=== PATIENT | female | born 1985 | race Caucasian/White ===

== ENCOUNTER 2016-08-02 15:20 | Emergency (ER) | payer SELFPAY ==
[~2016-08-02] VITALS: Ht 167.6 cm; Wt 50.2 kg
[2016-08-02 15:27] VITALS: BP 180/131; PULSE 120; RESP 20; TEMP 98.2; O2SAT 99
[2016-08-02] MEDS ORDERED: ZANT150T2 PO (15:44)
[2016-08-02] MEDS ORDERED: PEPT262S PO (15:44)
[2016-08-02 15:47] VITALS: BP 119/74; PULSE 82; RESP 18; O2SAT 99
[2016-08-02 15:55] LABS: BLOOD, URINE LARGE (NEG); GLUCOSE,URINE NEG (NEG); NITRITE,URINE NEG (NEG)
[2016-08-02] MEDS ORDERED: SODIUM CHLOR 0.9% 1000 ML INJ 1,000 ML IV ONE (16:00)
[2016-08-02] MEDS ORDERED: ALUMINUM/MAGNESIUM/SIMETH 30 ML CUP PO ONE (16:00)
[2016-08-02] MEDS ORDERED: ONDANSETRON HCL 4 MG/2 ML VIAL IV PUSH ONE (16:00)
[2016-08-02] MEDS ORDERED: LIDOCAINE VISCOUS 2% SOLN 15 ML UDC PO ONE (16:00)
[2016-08-02] MEDS ORDERED: PANTOPRAZOLE SODIUM 40 MG VIAL IV PUSH ONE (16:00)
--- NOTE | 2016-08-02 16:07 | PD ---
HPI Chief Complaint: Abdominal Pain Time Seen by Provider: 15:52 Travel History International Travel<30 days: No Contact w/Intl Traveler<30days: No Traveled to known affect area: No History of Present Illness HPI This 30-year-old female is complaining of epigastric distress. She has not been able to eat for several days. Last Saturday which was almost a week ago she had alcohol. She woke up with an upset stomach and took an Aleve. Since then she has not been able to eat. When she eats she says it hurts to swallow. Food gets in her stomach and she has had sporadic vomiting. She has been able to hold down fluids. She is not on any medication. She has taken Zantac. She has no history of ulcer disease or abdominal surgery. She does not think she is [facility] Past Medical History Medical History: Denies Significant Hx Diminished Hearing: No Influenza Vaccination: No ?: Not LMP: NOW Past Surgical History Surgical History: No Previous Surgery Social History Alcohol Use: Yes Tobacco Use: No Substance Use: Yes (MARIJUANA) Allergies-Medications (Allergen,Severity, Reaction): Coded Allergies: No Known Allergies (Unverified , 08/02/16) Reported Meds & Prescriptions Reported Meds & Active Scripts Active Zofran Odt (Ondansetron Odt) 4 Mg Tab 4 Mg SL Q6HR PRN Protonix (Pantoprazole Sodium) 40 Mg Tab 40 Mg PO DAILY Reported Pepto-Bismol Liq (Bismuth Subsalicylate) 262 Mg/15 Ml Susp 30 Ml PO DIRECTED PRN Do not exceed 8 doses (240 mL or 16 tbsp) in 24 hours. Zantac (Ranitidine HCl) 150 Mg Tab 150 Mg PO DAILY Review of Systems General / Constitutional: No: Fever, Chills Eyes: No: Diploplia, Blurred Vision HENT: No: Headaches Cardiovascular: No: Chest Pain or Discomfort, Palpitations Respiratory: No: Cough Gastrointestinal: Positive: Nausea, Vomiting, Abdominal Pain, Dysphagia, Loss of Appetite Genitourinary: No: Urgency, Frequency Musculoskeletal: No: Myalgias, Arthralgias Skin: No Rash, No Itching Neurologic: No: Weakness Psychiatric: No: Anxiety, Depression Endocrine: No: Heat Intolerance Hematologic/Lymphatic: No: Easy Bruising Physical Exam Narrative GENERAL: Well-developed female SKIN: Focused skin assessment warm/dry. HEAD: Atraumatic. Normocephalic. EYES: Pupils equal and round. No scleral icterus. No injection or drainage. ENT: No nasal bleeding or discharge. Mucous membranes pink and moist. NECK: Trachea midline. No JVD. CARDIOVASCULAR: Regular rate and rhythm. No murmur appreciated. RESPIRATORY: No accessory muscle use. Clear to auscultation. Breath sounds equal bilaterally. GASTROINTESTINAL: Abdomen soft, mild epigastric tenderness, nondistended. Hepatic and splenic margins not palpable. MUSCULOSKELETAL: No obvious deformities. No clubbing. No cyanosis. No edema. NEUROLOGICAL: Awake and alert. No obvious cranial nerve deficits. Motor grossly within normal limits. Normal speech. PSYCHIATRIC: Appropriate mood and affect; insight and judgment normal. Data Data Last Documented VS Vital Signs Date Time Temp Pulse Resp B/P Pulse Ox O2 Delivery O2 Flow Rate FiO2 08/02/16 15:47 82 18 119/74 99 Room Air 08/02/16 15:27 98.2 Orders Urinalysis - C+S If Indicated (08/02/16 15:36) Ed Urine Pregnancytest Poc (08/02/16 15:36) Complete Blood Count With Diff (08/02/16 15:57) Comprehensive Metabolic Panel (08/02/16 15:57) Lipase (08/02/16 15:57) Sodium Chlor 0.9% 1000 Ml Inj (Ns 1000 M (08/02/16 16:00) Ondansetron Inj (Zofran Inj) (08/02/16 16:00) Pantoprazole Inj (Protonix Inj) (08/02/16 16:00) Al-Mag Hy-Si 40-40-4 Mg/Ml Liq (Mag-Al P (08/02/16 16:00) Lidocaine 2% Viscous (Xylocaine 2% Visco (08/02/16 16:00) Labs Laboratory Tests Test 08/02/16 08/02/16 08/02/16 15:40 16:05 16:50 Urine Color YELLOW Urine Turbidity CLEAR Urine pH 6.0 Urine Specific [place] 1.022 Urine Protein TRACE mg/dL Urine Glucose (UA) NEG mg/dL Urine Ketones 80 OR GREATER mg/dL Urine Occult Blood LARGE Urine Nitrite NEG Urine Bilirubin NEG Urine Leukocyte Esterase NEG Urine RBC 0-3 /hpf Urine WBC 0-2 /hpf Urine Squamous Epithelial 0-5 /hpf Cells Microscopic Urinalysis Comment CULT NOT INDICATED White Blood Count 7.8 TH/MM3 Red Blood Count 4.56 MIL/MM3 Hemoglobin 13.9 GM/DL Hematocrit 41.6 % Mean Corpuscular Volume 91.3 FL Mean Corpuscular Hemoglobin 30.6 PG Mean Corpuscular Hemoglobin 33.5 % Concent Red Cell Distribution Width 11.9 % Platelet Count 259 TH/MM3 Mean Platelet Volume 8.0 FL Neutrophils (%) (Auto) 71.9 % Lymphocytes (%) (Auto) 17.1 % Monocytes (%) (Auto) 9.2 % Eosinophils (%) (Auto) 0.4 % Basophils (%) (Auto) 1.4 % Neutrophils # (Auto) 5.7 TH/MM3 Lymphocytes # (Auto) 1.3 TH/MM3 Monocytes # (Auto) 0.7 TH/MM3 Eosinophils # (Auto) 0.0 TH/MM3 Basophils # (Auto) 0.1 TH/MM3 CBC Comment DIFF FINAL Differential Comment Sodium Level 138 MEQ/L Potassium Level 3.3 MEQ/L Chloride Level 101 MEQ/L Carbon Dioxide Level 26.3 MEQ/L Anion Gap 11 MEQ/L Blood Urea Nitrogen 13 MG/DL Creatinine 0.64 MG/DL Estimat Glomerular Filtration 110 ML/MIN Rate Random Glucose 78 MG/DL Calcium Level 8.3 MG/DL Total Bilirubin 0.7 MG/DL Aspartate Amino Transf 13 U/L (AST/SGOT) Alanine Aminotransferase 15 U/L (ALT/SGPT) Alkaline Phosphatase 53 U/L Total Protein 6.2 GM/DL Albumin 3.2 GM/DL Lipase 92 U/L [facility] Medical Decision Making Medical Screen Exam Complete: Yes Emergency Medical Condition: Yes Medical Record Reviewed: Yes Differential Diagnosis Differential includes gallbladder disease, ulcer disease, gastritis Narrative Course History is consistent with gastritis, possible ulcer. She has been given some IV fluids. Her lab work shows some mild dehydration. She'll be released with prescription for Protonix and Zofran. Diagnosis Primary Impression: Acute gastritis Qualified Code: K29.00 - Acute gastritis without hemorrhage, unspecified gastritis type Scripts Ondansetron Odt (Zofran Odt)4 Mg Tab4 Mg SL Q6HR PRN (Nausea/Vomiting) #15 TAB Ref 0 Prov:Levon Piper MD 08/02/16 Pantoprazole (Protonix)40 Mg Tab40 Mg PO DAILY #20 TAB Ref 0 Prov:Levon Piper MD 08/02/16 Disposition: 01 DISCHARGE HOME Condition: Stable Levon Piper MD Aug 02, 2016 16:07
[2016-08-02 16:40] LABS: KETONE, URINE 80 OR GREATER mg/dL (NEG)
[2016-08-02 16:42] LABS: COMMENT (UR) CULT NOT INDICATED; CULTURE IF INDICATED CULT NOT INDICATED; RBC, URINE 0-3 /hpf (0-3); SQUAMOUS EPITHELIAL CELL URINE 0-5 /hpf (0-5); URINE COLOR YELLOW (YELLW/STRAW); WBC, URINE 0-2 /hpf (0-5)
[2016-08-02 16:52] LABS: AUTOMATED NEUTROPHIL # 5.7 TH/MM3 (1.8-7.7); BASOPHIL # 0.1 TH/MM3 (0-0.2); BASOPHIL % 1.4 % (0.0-2.0); EOSINOPHIL % 0.4 % (0.0-4.0); HEMATOCRIT 41.6 % (35.0-46.0); HEMO FLAGS DIFF FINAL; LYMPH % 17.1 % (9.0-44.0); LYMPHOCYTE # 1.3 TH/MM3 (1.0-4.8); MEAN CELL VOLUME 91.3 FL (80.0-100.0); MEAN CORPUSCULAR HEMOGLOBIN 30.6 PG (27.0-34.0); MEAN CORPUSCULAR HGB CONC 33.5 % (32.0-36.0); MONO % 9.2 % (0.0-8.0); NEUT % 71.9 % (16.0-70.0); PLATELET COUNT 259 TH/MM3 (150-450); RED BLOOD COUNT 4.56 MIL/MM3 (4.00-5.30); RED CELL DISTRIBUTION WIDTH 11.9 % (11.6-17.2); WHITE BLOOD COUNT 7.8 TH/MM3 (4.0-11.0)
[2016-08-02] MEDS ORDERED: PROT40TA PO (17:02)
[2016-08-02] MEDS ORDERED: ZOFR4TAB3 SL (17:02)
[2016-08-02 17:33] LABS: CHLORIDE 101 MEQ/L (98-107); POTASSIUM 3.3 MEQ/L (3.5-5.1); SODIUM (NA) 138 MEQ/L (136-145)
[2016-08-02 17:37] LABS: ANION GAP 11 MEQ/L (5-15); BICARBONATE 26.3 MEQ/L (21.0-32.0); BLOOD UREA NITROGEN 13 MG/DL (7-18)
[2016-08-02 17:40] LABS: ALT (GPT) 15 U/L (10-53); AST (GOT) 13 U/L (15-37); GLOMERULAR FILTRATION RATE 110 ML/MIN (>89)
[2016-08-02 17:41] LABS: TOTAL BILIRUBIN ADULT 0.7 MG/DL (0.2-1.0)
[2016-08-02 17:43] LABS: ALKALINE PHOSPHATASE 53 U/L (45-117)
[2016-08-02 17:47] VITALS: BP 113/61
== END 2016-08-02 17:57 | disposition home or self-care (01) ==
LOC: PHED 15:20
DX: K29.00 Acute gastritis without bleeding (principal)
CPT/HCPCS: 80053; 81001; 83690; 84703; 85025; 96361; 96374; 96375; 99284; C9113; J2405; J7030